=== PATIENT | male | born 1955 | race Caucasian/White ===

== ENCOUNTER → 2016-04-06 | Outpatient (CLI) | payer OTHER ==
--- NOTE | 2016-04-06 21:14 | DI ---
XR FOOT 2VW,04/06/2016 2:29 PM: Clinical History: Right foot pain Previous Exam: None at this facility. Findings: AP and lateral views of the right foot are obtained, and demonstrate mild degenerative changes of the first metatarsophalangeal joint. There is some increased new bone formation at the insertion of the Achilles tendon. There is some prominence of the medial most portion of the navicular most likely representing unfused accessory ossicle. There is some fragmentation along the inferior margin of the fibula most likely representing a prior injury. Impression: 1. Fragmentation of the distal fibula most likely representing a prior injury. 2. 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 3. Fused os navicularis.
== END ==
LOC: MOB RAD 14:32
PROVIDERS: ATTEND Internal Medicine
DX: M79.671 Pain in right foot (principal); G61.89 Other inflammatory polyneuropathies; M19.071 Primary osteoarthritis, right ankle and foot
CPT/HCPCS: 73620